=== PATIENT | female | born 1975 | race African-American/Black ===

== ENCOUNTER 2016-08-26 15:10 | Emergency (ER) | payer BC, MEDICAID ==
--- NOTE | 2016-08-26 15:22 | ER Document Report ---
ED Medical Screen (RME) - General Stated Complaint: THROAT PAIN Notes: 40 yo female c/o right upper quad pain since Dec 3. pain has increased over last week. + fever. no n/v. seen by PCM by Dr Martinez yesterday for arthralgia, sore throat. started on antibiotics 3 days ago. no chest pain, + shortness of breath. Pt tachy HR 152. hx.o HTN, ADD TRAVEL OUTSIDE OF THE [place] IN LAST 30 DAYS: No - Related Data Allergies/Adverse Reactions: No Known Drug Allergies Allergy (Verified 08/26/16 15:16) Pet Dander Allergy (Uncoded 08/26/16 15:16) Past Medical History - Past Medical History Cardiac Medical History: Reports: Hx Hypertension Denies: Hx Coronary Artery Disease, Hx Heart Attack Pulmonary Medical History: Denies: Hx Asthma, Hx Bronchitis, Hx COPD, Hx Pneumonia Neurological Medical History: Denies: Hx Cerebrovascular Accident, Hx Seizures Musculoskeltal Medical History: Denies Hx Arthritis Psychiatric Medical History: Reports: Hx Attention Deficit Hyperactivity Disorder Past Surgical History: Reports: Hx Breast Surgery, Hx Tonsillectomy - Immunizations Hx Diphtheria, Pertussis, Tetanus Vaccination: Yes Physical Exam - Vital signs Vitals: Temp Pulse Resp BP Pulse Ox 99.6 F 155 H 18 148/87 H 100 08/26/16 15:15 08/26/16 15:15 08/26/16 15:15 08/26/16 15:15 08/26/16 15:15 Course - Vital Signs Vital signs: Temp Pulse Resp BP Pulse Ox 99.6 F 155 H 18 148/87 H 100 08/26/16 15:15 08/26/16 15:15 08/26/16 15:15 08/26/16 15:15 08/26/16 15:15
[2016-08-26 16:11] LABS: ABSOLUTE LYMPHOCYTES (AUTO) 1.4 10^3/uL (0.5-4.7); ABSOLUTE MONOCYTES (AUTO) 0.7 10^3/uL (0.1-1.4); ABSOLUTE NEUT (AUTO) 8.5 10^3/uL (1.7-8.2); BASOPHILS % (AUTO) 0.4 % (0-2); HEMATOCRIT 39.7 % (36.0-47.0); HEMOGLOBIN 13.3 g/dL (12.0-15.5); HGB HCT DIFFERENCE 0.2; LYMPHOCYTES % (AUTO) 13.2 % (13-45); MEAN CORPUSCULAR HEMOGLOBIN 26.9 pg (27.0-33.4); MEAN CORPUSCULAR HGB CONC 33.5 g/dL (32.0-36.0); MEAN CORPUSCULAR VOLUME 80 fl (80-97); MONOCYTES % (AUTO) 6.2 % (3-13); RED BLOOD COUNT 4.94 10^6/uL (3.72-5.28); RED CELL DISTRIBUTION WIDTH 15.3 % (11.5-14.0); SEGMENTED NEUTROPHILS % (AUTO) 80.2 % (42-78); WHITE BLOOD COUNT 10.6 10^3/uL (4.0-10.5)
[2016-08-26 16:15] LABS: APPEARANCE,URINE CLOUDY; BILIRUBIN,URINE NEGATIVE (NEGATIVE); GLUCOSE, URINE NEGATIVE (NEGATIVE); KETONES,URINE NEGATIVE (NEGATIVE); LEUKOCYTE ESTERASE,URINE NEGATIVE (NEGATIVE); NITRITE,URINE NEGATIVE (NEGATIVE); PROTEIN,URINE 30 mg/dL (NEGATIVE); URINE SPECIFIC GRAVITY 1.015; UROBILINOGEN,URINE NEGATIVE mg/dL (<2.0)
[2016-08-26 16:31] LABS: ALANINE AMINOTRANSFERASE 29 U/L (9-52); ALBUMIN 4.5 g/dL (3.5-5.0); ALKALINE PHOSPHATASE 77 U/L (38-126); ANION GAP 17 (5-19); ASPARTATE AMINO TRANSFERASE 28 U/L (14-36); BILIRUBIN,TOTAL 0.5 mg/dL (0.2-1.3); BLOOD UREA NITROGEN 13 mg/dL (7-20); CALCIUM 10.4 mg/dL (8.4-10.2); CARBON DIOXIDE 26 mmol/L (22-30); CHLORIDE 97 mmol/L (98-107); CREATININE RESULT 1.01 mg/dL (0.52-1.25); GLUCOSE 104 mg/dL (75-110); LIPASE 159.2 U/L (23-300); POTASSIUM 3.9 mmol/L (3.6-5.0); SODIUM 139.7 mmol/L (137-145); TOTAL PROTEIN 8.6 g/dL (6.3-8.2)
[2016-08-26] MEDS ORDERED: RINGERS SOLUTION,LACTATED 1,000 ML IV PRN (16:32)
[2016-08-26 19:35] LABS: CREATINE KINASE MB < 0.22 ng/mL (<4.55); TROPONIN I < 0.012 ng/mL
[2016-08-26 19:52] LABS: THYROID STIMULATING HORMONE 2.41 uIU/mL (0.47-4.68)
--- NOTE | 2016-08-26 20:27 | ER Document Report ---
ED General - General Chief Complaint: Sore Throat Stated Complaint: THROAT PAIN Notes: This is a 40-year-old female who presents to the ER with concerns of elevated heart rate. She states she's not been feeling well for a couple of weeks. She states her symptoms began on or around August 11 when she had cough, congestion and a rash. She's been seeing Dr. Christina Miguel. She states that she had influenza and was also given some antibiotics. She took the medication but feels like she is getting worse. She states she's breaking out in sweats. She' s had a temperature up to 100.9. She's had a cough productive of scanty clear sputum. No hemoptysis. No wheezing. She does feel occasional "murmur" in the right chest. Today became painful to take a deep breath. No diarrhea. No dysuria. She notes a pruritic red rash on her arms and legs. She states Dr. Martinez is doing a workup to see if she has lupus. TRAVEL OUTSIDE OF THE [place] IN LAST 30 DAYS: No - Related Data Allergies/Adverse Reactions: No Known Drug Allergies Allergy (Verified 08/26/16 15:16) Pet Dander Allergy (Uncoded 08/26/16 15:16) Past Medical History - Social History Smoking Status: Never Smoker Chew tobacco use (# tins/day): No Frequency of alcohol use: Social Drug Abuse: None Occupation: MEDICAL ADVISOR Lives with: Family Family History: Reviewed & Not Pertinent, Other - Patient grew up in the [facility] but has been here since 15 Patient has suicidal ideation: No Patient has homicidal ideation: No - Past Medical History Cardiac Medical History: Reports: Hx Hypertension Denies: Hx Coronary Artery Disease, Hx Heart Attack Pulmonary Medical History: Denies: Hx Asthma, Hx Bronchitis, Hx COPD, Hx Pneumonia Neurological Medical History: Denies: Hx Cerebrovascular Accident, Hx Seizures Renal/ Medical History: Denies: Hx Peritoneal Dialysis Musculoskeltal Medical History: Denies Hx Arthritis Psychiatric Medical History: Reports: Hx Attention Deficit Hyperactivity Disorder Past Surgical History: Reports: Hx Breast Surgery, Hx Tonsillectomy - Immunizations Hx Diphtheria, Pertussis, Tetanus Vaccination: Yes Review of Systems - Review of Systems Constitutional: Chills, Diaphoresis, Fever, Malaise, Weakness, Recent illness. denies: Weight gain, Weight loss EENT: Nose discharge Cardiovascular: Dyspnea. denies: Syncope Respiratory: Cough, Hurts to breathe Gastrointestinal: denies: Diarrhea, Vomiting Genitourinary: denies: Hematuria Musculoskeletal: Joint swelling. denies: Leg swelling Skin: Rash Neurological/Psychological: denies: Numbness, Tingling Physical Exam - Vital signs Vitals: Temp Pulse Resp BP Pulse Ox 99.6 F 155 H 18 148/87 H 100 08/26/16 15:15 08/26/16 15:15 08/26/16 15:15 08/26/16 15:15 08/26/16 15:15 - General General appearance: Alert In distress: Mild Notes: Talkative, pleasant female who is notably diaphoretic - HEENT Head: Normocephalic, Atraumatic - Respiratory Respiratory status: No respiratory distress Breath sounds: Normal - Cardiovascular Rhythm: Regular, Tachycardia Murmur: No - Abdominal Inspection: Normal Tenderness: Nontender - Back Back: Normal - Extremities General upper extremity: Normal inspection, Normal ROM General lower extremity: Normal inspection, Normal ROM. No: Edema - Neurological Neuro grossly intact: Yes Orientation: AAOx4 Motor strength normal: LUE, RUE, LLE, RLE - Psychological Associated symptoms: Normal affect - Skin Skin Temperature: Warm Skin Moisture: Dry Skin Color: Normal Character of irregularity: Erythematous, Urticarial. negative: Petechial, Embolic lesion Course - Re-evaluation Re-evalutation: 08/26/16 20:21 The patient wants to go home. Iniitial HR 147 has improved to 112-118 after IV fluids. PE study neg. Thyroid normal. Cardiac enzymed normal. Strep negative. Urine unremarkable. I discussed with Dr. Lemus who has been seeing her in office for these symptoms and he will see her tomorrow in office for recheck. - Vital Signs Vital signs: Temp Pulse Resp BP Pulse Ox 99.8 F 155 H 24 H 148/87 H 100 08/26/16 18:30 08/26/16 15:15 08/26/16 18:00 08/26/16 15:15 08/26/16 16:18 - Laboratory Result Diagrams: 08/26/16 15:46 08/26/16 15:46 Laboratory results interpreted by me: 08/26/16 08/26/16 08/26/16 15:46 15:46 15:46 WBC 10.6 H MCH 26.9 L RDW 15.3 H Seg Neutrophils % 80.2 H Absolute Neutrophils 8.5 H Chloride 97 L Calcium 10.4 H Total Protein 8.6 H Urine Protein 30 H Urine Ascorbic Acid 40 H Discharge - Discharge Clinical Impression: Tachycardia Condition: Stable Disposition: HOME, SELF-CARE Additional Instructions: follow up with Dr. Lemus in office tomorow. REturn to ER if you are feeling worse. Forms: Return to Work Referrals: ABBI WILDER MD [Primary Care Provider] - Follow up as needed
[2016-08-26 22:08] VITALS: BP 128/73
--- NOTE | 2016-08-27 09:44 | EKG REPORT ---
SEVERITY:- ABNORMAL ECG - SINUS TACHYCARDIA NONSPECIFIC T ABNORMALITIES, INFERIOR LEADS : Confirmed by: Nallely Puri MD 27-Aug-2016 09:43:27
== END 2016-08-26 22:06 | disposition home or self-care (01) ==
LOC: ER 15:10
DX: R00.0 Tachycardia, unspecified (principal); J02.9 Acute pharyngitis, unspecified; R05 Cough; R21 Rash and other nonspecific skin eruption; I10 Essential (primary) hypertension; R53.81 Other malaise; R53.1 Weakness
CPT/HCPCS: 93005; 99284; 96365; 36415; 87070; 84439; 82553; 87880; 82550; 83690; 84443; 85025; 80053; 81001; 84484; 84481; 71020; 71275; 93010; J7120